=== PATIENT | female | born 1940 | race Caucasian/White ===

== ENCOUNTER → 2017-11-20 | Day surgery (SDC) | payer MEDICARE, OTHER ==
[2017-11-19 10:48] LABS: BASOPHILS % 0.6 % (0.0-1.0); EOSINOPHILS # (AUTO) 0.1 (0.0-0.4); EOSINOPHILS % 1.4 % (0.0-6.0); HEMOGLOBIN 13.7 g/dL (12.0-16.0); LYMPHOCYTES # (AUTO) 1.4 (1.0-3.2); LYMPHOCYTES % 20.8 % (18.0-39.1); MEAN CORPUSCULAR HEMOGLOBIN 31.9 pg (28-32); MEAN CORPUSCULAR HGB CONC 35.1 g/dL (31-35); MEAN CORPUSCULAR VOLUME 90.7 fL (81-99); MONOCYTES # (AUTO) 0.6 (0.2-0.8); MONOCYTES % 8.5 % (4.4-11.3); NEUTROPHILS # (AUTO) 4.5 (2.1-6.9); NEUTROPHILS % 68.4 % (38.7-80.0); PLATELET COUNT 243 x10e3/uL (140-360)
[~2017-11-20] MED LIST: ANASTROZOLE1 MG PO; ANTIOXIDANT SO1 EACH PO; ASPIR 8181 MG PO; AUGMENTIN 875-1 EACH PO; CARVEDILOL3.125 MG PO; DETROL LA4 MG PO; FENTANYL CITRATE/PF 100MCG/2 ML INJ ONE; GLYCOPYRROLATE INJ 1MG/ 5 ML SYR ONE; HYDROCHLOROTHIA25 MG PO; IOPAMIDOL 200 MG/ML 20 ML VIAL IT ONE; LIDOCAINE HCL 1% 30ML-PF VIAL ONE; LIDOCAINE HCL 2% LOCAL INJ 5 ML SDV VIAL INJ ONE; MIDAZOLAM HCL 2 MG/2 ML VIAL ONE; PROPOFOL IV EMULSION 10 MG/ML 20 ML VIAL ONE; RANITIDINE HCL300 M1 PO; SENNA LAX8.6 MG PO; TRIAMCINOLONE ACET 40 MG/ML VIAL ONE; TYLENOL PO; VIT D3 PO; ZYRTEC10 M3 PO
== END | disposition home or self-care (01) ==
LOC: OR 05:41 → EDBD 07:00
PROVIDERS: ATTEND Physical Medicine & Rehabilitation Pain Medicine
DX: M47.816 Spondylosis without myelopathy or radiculopathy, lumbar region (principal); M47.817 Spondylosis without myelopathy or radiculopathy, lumbosacral region; M46.1 Sacroiliitis, not elsewhere classified; R93.7 Abnormal findings on diagnostic imaging of other parts of musculoskeletal system; I10 Essential (primary) hypertension; Z88.5 Allergy status to narcotic agent; Z88.2 Allergy status to sulfonamides; Z88.8 Allergy status to other drugs, medicaments and biological substances; Z01.812 Encounter for preprocedural laboratory examination; Z79.82 Long term (current) use of aspirin
CPT/HCPCS: 36415; 64493; 64494; 64495; 85025; J2001 ×2; J2250; J3301; J3490; Q9966; 77003

== ENCOUNTER 2018-01-18 09:59 | Emergency (ER) | payer MEDICARE, OTHER ==
[~2018-01-18] VITALS: Ht 162.6 cm; Wt 74.4 kg
[~2018-01-18 09:59] MED LIST changes: -FENTANYL CITRATE/PF 100MCG/2 ML INJ ONE; -GLYCOPYRROLATE INJ 1MG/ 5 ML SYR ONE; -IOPAMIDOL 200 MG/ML 20 ML VIAL IT ONE; -LIDOCAINE HCL 1% 30ML-PF VIAL ONE; -LIDOCAINE HCL 2% LOCAL INJ 5 ML SDV VIAL INJ ONE; -MIDAZOLAM HCL 2 MG/2 ML VIAL ONE; -PROPOFOL IV EMULSION 10 MG/ML 20 ML VIAL ONE; -TRIAMCINOLONE ACET 40 MG/ML VIAL ONE
[2018-01-18] MEDS ORDERED: MORPHINE SULFATE INJ 4 MG/ML INJ IV STA (10:37)
[2018-01-18] MEDS ORDERED: ONDANSETRON HCL INJ 2 MG/ML VIAL IV STA (10:37)
[2018-01-18] MEDS ORDERED: ASPIRIN 81 MG CHEW TAB PO ONE (10:45)
[2018-01-18 11:15] LABS: BASOPHILS % 0.1 % (0.0-1.0); HEMATOCRIT 41.6 % (34.2-44.1); HEMOGLOBIN 15.1 g/dL (12.0-16.0); LYMPHOCYTES # (AUTO) 0.9 (1.0-3.2); LYMPHOCYTES % 8.2 % (18.0-39.1); MEAN CORPUSCULAR HEMOGLOBIN 32.5 pg (28-32); MEAN CORPUSCULAR HGB CONC 36.3 g/dL (31-35); MEAN CORPUSCULAR VOLUME 89.7 fL (81-99); MONOCYTES # (AUTO) 0.3 (0.2-0.8); MONOCYTES % 2.7 % (4.4-11.3); NEUTROPHILS # (AUTO) 9.7 (2.1-6.9); NEUTROPHILS % 88.3 % (38.7-80.0); PLATELET COUNT 322 x10e3/uL (140-360); RED BLOOD COUNT 4.64 x10e6/uL (3.6-5.1); RED CELL DISTRIBUTION WIDTH 12.3 % (11.7-14.4)
[2018-01-18 11:24] LABS: INR 1.03; PROTHROMBIN TIME 12.7 seconds (11.9-14.5)
[2018-01-18 11:25] LABS: PARTIAL THROMBOPLASTIN TIME 26.2 seconds (23.8-35.5)
[2018-01-18 11:34] LABS: ALANINE AMINOTRANSFERASE 21 IU/L (0-55); ALBUMIN 4.1 g/dL (3.5-5.0); ALBUMIN/GLOBULIN RATIO 1.2 (0.8-2.0); ALKALINE PHOSPHATASE 95 IU/L (40-150); ANION GAP 18.5 mmol/L (8-16); BLOOD UREA NITROGEN 26 mg/dL (7-26); BUN/CREATININE RATIO 34 (6-25); CALCIUM 10.1 mg/dL (8.4-10.2); CARBON DIOXIDE 22 mmol/L (22-29); CHLORIDE 94 mmol/L (98-107); CREATINE KINASE 36 IU/L (29-168); CREATININE, SERUM 0.77 mg/dL (0.57-1.11); EST GLOMERULAR FILTRATION RATE > 60 ML/MIN (60-); GLUCOSE 122 mg/dL (74-118); POTASSIUM 3.5 mmol/L (3.5-5.1); SODIUM 131 mmol/L (136-145)
[2018-01-18] MEDS ORDERED: DIAZEPAM 5 MG TAB PO ONE (12:15)
[2018-01-18 12:20] LABS: COLOR,URINE YELLOW (YELLOW)
[2018-01-18 12:21] LABS: BILIRUBIN,URINE NEGATIVE (NEGATIVE); CLARITY,URINE HAZY (CLEAR); KETONES,URINE NEGATIVE (NEGATIVE); LEUKOCYTE ESTERASE ,URINE TRACE (NEGATIVE); NITRITE,URINE NEGATIVE (NEGATIVE); PROTEIN,URINE DIPSTICK NEGATIVE (NEGATIVE); URINE UROBILINOGEN 0.2 mg/dL (0.2 - 1)
[2018-01-18 12:22] LABS: BACTERIA,URINE MODERATE /HPF; EPITHELIAL CELLS,URINE FEW /LPF
--- NOTE | 2018-01-18 12:28 | Diagnostic Imaging Report ---
ADDENDUM #1 Addendum: Above described findings lingula and right middle lobe, incompletely evaluated. 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 Signed by: Dr. Moses Silva MD on 01/18/2018 2:13 PM ORIGINAL REPORT EXAM: CT Abdomen and Pelvis WITHOUT contrast INDICATION: Left back/flank pain COMPARISON: None. TECHNIQUE: Abdomen and Pelvis was scanned utilizing a multidetector helical scanner without the use of IV contrast. Coronal and sagittal reformations were obtained. IV CONTRAST: None COMPLICATIONS: None RADIATION DOSE: Total DLP: 335 mGy*cm Estimated effective dose: (DLP x 0.015 x size factor) mSv CTDIvol has been reviewed. It is below the limits set by the Radiation Protocol Committee (RPC). FINDINGS: Abdomen: Lung Bases: Tree-in-bud opacities in the right middle lobe and lingula with bronchiectasis and bronchial wall thickening partially visualized in the lingula. More focal nodular area anteriorly in the lingula presumed scarring, but incompletely evaluated. Solid Organs: No renal or ureteral calculi. Nonenhanced images of solid organs unremarkable. Upper GI Tract: No small bowel obstructive changes. Vascularity: Mild aortic vascular calcifications with no aneurysm. Lymph Nodes: No suspicious adenopathy. Other: No free fluid or free air. Pelvis: Bladder: Unremarkable. Other: Uterus absent. Colon: No acute colonic findings. Fecalization distal small bowel likely due to slow transit. No inflammatory or obstructive changes. Bones: Moderate left apex curvature of the lumbar spine with associated moderate endplate degenerative changes. IMPRESSION: 1. No definite acute finding. See above for full details. Signed by: Dr. Moses Silva MD on 01/18/2018 12:25 PM
[2018-01-18 13:14] VITALS: BP 153/74
== END 2018-01-18 13:31 | disposition home or self-care (01) ==
LOC: ER 09:59
DX: M54.5 Low back pain (principal); N39.0 Urinary tract infection, site not specified; I10 Essential (primary) hypertension; G89.29 Other chronic pain
CPT/HCPCS: 36415; 74176; 80053; 81001; 82550; 82553; 84484; 85025; 85610; 85730; 99284